=== PATIENT | male | born 1950 | race Caucasian/White ===

== ENCOUNTER 2017-09-06 13:28 | Day surgery (SDC) | payer MEDICARE, MEDICAID ==
[~2017-09-06] VITALS: Ht 170.2 cm; Wt 86.4 kg
[~2017-09-06 13:28] MED LIST: ALPR-623 PO; CLON-528 PO; PER10325T PO; SERT100T PO; SERT50TA PO; SUCR1TAB PO
[2017-09-06] MEDS ORDERED: BUDE10.2 INH (15:17)
[2017-09-06] MEDS ORDERED: UMEC62.5 (15:18)
[2017-09-06] MEDS ORDERED: HYDR-3973 PO (15:19)
[2017-09-06] MEDS ORDERED: ALBU18HF2 INH (15:21)
[2017-09-06] MEDS ORDERED: LORA1TAB PO (15:22)
[2017-09-06] MEDS ORDERED: QUET50TA PO (15:24)
[2017-09-06] MEDS ORDERED: ATOR20TA66 PO (15:24)
[2017-09-06] MEDS ORDERED: DULOXETINE PO (15:25)
[2017-09-06] MEDS ORDERED: MIDAZolam 5mg/ml 2ml vial ONE (15:29)
[2017-09-06] MEDS ORDERED: fentaNYL/PF 50MCG/1 ML 2ML syringe ONE (15:29)
[2017-09-06] MEDS ORDERED: LISI-604 PO (15:31)
[2017-09-06] MEDS ORDERED: DEXL60CA3 PO (15:31)
[2017-09-06 15:43] VITALS: BP 133/69
[2017-09-06 15:46] VITALS: BP 114/73
[2017-09-06 15:56] VITALS: BP 117/83
[2017-09-06 16:06] VITALS: BP 118/80
[2017-09-06 16:16] VITALS: BP 112/80
== END 2017-09-06 16:45 | disposition home or self-care (01) ==
LOC: GI LAB 13:28
PROVIDERS: ATTEND Internal Medicine Gastroenterology
DX: K64.8 Other hemorrhoids (principal); I10 Essential (primary) hypertension; J44.9 Chronic obstructive pulmonary disease, unspecified; Z87.891 Personal history of nicotine dependence; Z79.899 Other long term (current) drug therapy; Z85.46 Personal history of malignant neoplasm of prostate; Z98.890 Other specified postprocedural states
CPT/HCPCS: 45330; G0500; J2250; J3010; J7030; A4620